=== PATIENT | female | born 1990 | race Caucasian/White ===

== ENCOUNTER 2021-06-21 06:58 | Emergency (ER) | payer OTHER, SELFPAY ==
--- NOTE | ~2021-06-21 | CT_ITS ---
EXAMINATION: CT ABDOMEN AND PELVIS WITH CONTRAST CLINICAL INFORMATION: Trauma. Left-sided pain. Rule out intra-abdominal hemorrhage. COMPARISON: None TECHNIQUE: Multidetector volumetric images were obtained from the superior aspect of the liver through the pubic symphysis following administration 85 mL of Omnipaque 350 intravenous contrast. Sagittal and coronal reformatted images were obtained on the technologist's workstation. Oral contrast: Yes This CT examination was performed using dose optimization techniques as appropriate, variously including the following: *Automated exposure control *Adjustment of mA and/or kV according to patient size (this includes techniques or standardized protocols for targeted exams where dose is matched to indication/reason for exam; i.e. extremities or head) *Use of iterative reconstruction technique DLP: 546 mGy-cm FINDINGS: LUNG BASES: The visualized lung bases are unremarkable. LIVER, GALLBLADDER, AND BILIARY TREE: The liver is normal in size, shape, and attenuation. No focal hepatic lesion or biliary ductal dilatation is present. The gallbladder is unremarkable with no evidence of radiopaque gallstones, gallbladder wall thickening, or obvious pericholecystic inflammatory changes. PANCREAS: Unremarkable. SPLEEN: There is a 1 cm low-attenuation lesion in the inferior spleen probably representing a cyst. ADRENAL GLANDS: Unremarkable. KIDNEYS AND URETERS: The kidneys are normal in size, shape, and attenuation. No hydronephrosis, hydroureter, or calculi seen. No perinephric stranding. BLADDER: Unremarkable. GASTROINTESTINAL TRACT: The small and large bowel are unremarkable. The appendix is is not seen. ABDOMINAL WALL: There is a small umbilical hernia containing fat.. LYMPH NODES: Normal. VASCULAR: Unremarkable. PELVIC VISCERA: Unremarkable. OSSEOUS STRUCTURES: Unremarkable. CT/CT abdomen pelvis w con IMPRESSION: No acute findings. Probable small splenic cyst. Fleischner guidelines were followed.
[2021-06-21 07:03] VITALS: BP 138/85; PULSE 73; RESP 18; TEMP 36.6; O2SAT 99; BMI 28.1
--- NOTE | 2021-06-21 07:08 | ED_ITS ---
HPI - Fall General Chief Complaint: Fall Stated Complaint: L Upper Quad Pain Up To Chest Time Seen by Provider: 06/21/21 07:08 Source: patient Mode of arrival: ambulatory Limitations: no limitations History of Present Illness HPI Narrative: 30-year-old female came in for evaluation after falling 2 steps of stairs yesterday. Patient fell at home yesterday, patient slipped on a wet floor fell down landed on her right side and her but patient sustained small area of black and blue on her right buttock, but complaining of severe pain of the left side of her abdomen, after the fall patient did not have pain, had a tough night to sleep because of the severe pain, she was tossing and turning in bed last night from pain, patient declined head injury or LOC, pain localized to the left side of her abdomen feel like gas pain, with no radiation, no alleviating factor, no relieving factor. Patient had a normal bowel movement with no blood, no blood or pain with urination. No fever or chills. Related Data Previous Rx's Medication Instructions Recorded cyclobenzaprine 10 mg tablet 10 mg PO TID PRN #14 tab 06/21/21 oxycodone 5 mg tablet 5 mg PO Q8H PRN #14 tab 06/21/21 Allergies Allergy/AdvReac Type Severity Reaction Status Date / Time No Known Allergies Allergy Verified 06/21/21 07:08 Review of Systems Review of Systems: All other systems are reviewed and are negative Constitutional: Reports as per HPI and Reports no additional constitutional complaints Eyes: Reports as per HPI and Reports no additional eye complaints Reports system reviewed and no additional complaints, except as documented Cardiovascular: Reports as per HPI and Reports no additional cardiovascular complaints Respiratory: Reports as per HPI and Reports no additional respiratory complaints Gastrointestinal: Reports as per HPI and Reports no additional gastrointestinal complaints Genitourinary: Reports no additional female genitourinary complaints Musculoskeletal: Reports no additional musculoskeletal complaints Skin/Breast: Reports system reviewed and no additional complaints, except as docu Psychiatric: Reports no additional psychiatric complaints Endocrine: Reports no additional endocrine complaints Hematologic/Lymphatic: Reports no additional hematologic/lymphatic complaints Allergic/Immunologic: Reports no additional allergic/immunologic complaints Reports system reviewed and no additional complaints, except as documented and Reports Abnormal speech present [facility] Past Medical History Medical History GERD (gastroesophageal reflux disease) Psoriasis Social History Social History Alcohol intake: never Smoked in Last 30 Days: No Use of substances other than those prescribed or required for medical reasons: No Advance Directives: No Advance Directives Information Provided: No Physical Exam Vital Signs: Vital Signs: Last Vital Signs Temp 97.9 F 06/21/21 07:03 Pulse 73 06/21/21 07:03 Resp 16 06/21/21 07:31 BP 138/85 06/21/21 07:03 Pulse Ox 99 06/21/21 07:03 BMI result Body Mass Index 28.1 Vital signs have been reviewed as appeared to be correct. Blood pressure normal. Heart rate normal. Respiration rate normal. Temperature normal. Oxygen saturation normal. Appearance: Alert. Oriented X3. No acute distress. Head: Normal external exam. Normocephalic. Atraumatic. No Godinez signs noted. No raccoon eyes noted Eyes: PERRLA. EOMI. Conjunctiva and sclera normal. Eyelids normal. ENT: TM's Normal. Pharynx normal. Uvula midline. Moist mucous membranes. No trismus noted. No drooling noted. No muffled voice noted. Neck: Normal inspection. Neck supple. FROM. No adenopathy. Thyroid Normal. No meningeal signs. No neck mass noted. CVS: Normal heart rate and rhythm. Heart sound normal. No murmurs noted. Pulses normal throughout. Respiratory: No respiratory distress. Painless inspiration. Breath sounds normal. No wheezes/rales/rhonchi noted. Chest nontender. No accessory muscle usage noted or decreased air movement noted. Abdomen: Soft, left abdominal tenderness, no rebound tenderness, no guarding. Bowel sounds normal in all 4 quadrants. No distention noted. No organomegaly noted. No visible injury noted. Back: No CVA tenderness. Full range of motion noted. Skin: Skin warm and dry. Normal skin color. Normal skin turgor. No rashes/lesions/lacerations noted. Extremities: Right but the 2 x 3 small ecchymosis with no tenderness. Neuro: Oriented X 3. Cranial nerve exam: II-XII are grossly intact No motor deficit. No sensory deficit. Reflexes normal. Course Course Course Narrative: Assessment and plan. 30-year-old female came in for evaluation after she fell yesterday at home, patient came to work today was sent for evaluation of back pain and abdominal pain. Patient has a chronic peptic ulcer disease that she will follow with GI in the next few weeks, but physical exam is not indicating it is PUD related issues, labs were all unremarkable, CT of the abdomen and pelvis show no head trauma abdominal injuries. Will discharge the patient with oxycodone and muscle relaxant. MDM - Fall Lab Data Attestation: I reviewed the patient's lab results. Result diagrams: 06/21/21 07:26 06/21/21 07:26 Labs: Lab Results 06/21/21 06/21/21 06/21/21 Range/Units 07:26 07:26 07:34 WBC 7.0 (4.8-10.8) X10*3/uL RBC 4.09 L (4.20-5.50) X10*6/uL Hgb 12.3 (12.0-16.0) g/dl Hct 37.0 (37.0-47.0) % MCV 90.5 (80.0-98.0) fL MCH 30.1 (27.0-33.0) pg MCHC 33.2 (31.0-35.0) g/dl RDW 11.8 (11.0-16.0) % Plt Count 225 (160-400) X10*3/uL MPV 9.6 (9.4-12.3) fL Immature Gran % (Auto) 0.3 (0.0-0.4) % Neut % (Auto) 53.1 (45-73) % Lymph % (Auto) 32.4 (20-40) % [place] % (Auto) 5.7 (2-11) % Eos % (Auto) 8.2 H (0-4) % Baso % (Auto) 0.3 (0-2) % Lymph # (Auto) 2.3 (1.2-4.9) X10*3/uL [place] # (Auto) 0.4 (0.1-1.2) X10*3/uL Eos # (Auto) 0.6 H (0.0-0.4) X10*3/uL Baso # (Auto) 0.0 (0.0-0.2) X10*3/uL Abs Immat Gran (auto) 0.02 (0.00-0.03) X10*3/uL Absolute Neuts (auto) 3.7 (2.0-8.3) x10*3/uL Absolute Nucleated RBC 0.000 (0.0-0.012) X10*3/uL Nucleated RBC % (auto) 0.0 (0.0-0.2) /100WBC Sodium 137 (135-145) mmol/L Potassium 4.1 (3.3-5.1) mmol/L Chloride 109 H (96-108) mmol/L Carbon Dioxide 22 (22-29) mmol/L Anion Gap 10 L (12-20) BUN 13 (9-16) mg/dL Creatinine 0.79 (0.5-1.4) mg/dL Estim Creat Clear Calc 103.8 Estimated GFR > 60 Random Glucose 100 (60-115) mg/dL Calcium 8.9 (8.4-10.2) mg/dL Total Bilirubin 0.3 (0.0-1.0) mg/dL Direct Bilirubin < 0.2 (0.0-0.5) mg/dL AST 17 (5-31) U/L ALT 11 (0-31) U/L Alkaline Phosphatase 63 (39-117) U/L Total Protein 7.0 (6.5-8.0) g/dL Albumin 4.1 (3.5-5.0) g/dL Lipase 29 (8-78) U/L Urine Color YELLOW Urine Appearance CLEAR Urine pH 5.5 (5.0-8.0) Ur Specific [place] >= 1.030 H (1.005-1.025) Urine Protein NEG (NEG-TRACE) MG/DL Urine Glucose (UA) NEG (NEG) MG/DL Urine Ketones NEG (NEG) MG/DL Urine Blood NEG (NEG) Urine Nitrite NEG (NEG) Ur Leukocyte Esterase TRACE H (NEG) Urine RBC 0 (0) /HPF Urine WBC 1-4 (0-4) /HPF Ur Squamous Epith Cells 2+ /LPF Urine Bacteria TRACE /LPF Urine Test (NEGATIVE) COVID-19 (ANDREA) (Negative) COVID-19 Clin Com 06/21/21 06/21/21 Range/Units 07:34 08:21 WBC (4.8-10.8) X10*3/uL RBC (4.20-5.50) X10*6/uL Hgb (12.0-16.0) g/dl Hct (37.0-47.0) % MCV (80.0-98.0) fL MCH (27.0-33.0) pg MCHC (31.0-35.0) g/dl RDW (11.0-16.0) % Plt Count (160-400) X10*3/uL MPV (9.4-12.3) fL Immature Gran % (Auto) (0.0-0.4) % Neut % (Auto) (45-73) % Lymph % (Auto) (20-40) % [place] % (Auto) (2-11) % Eos % (Auto) (0-4) % Baso % (Auto) (0-2) % Lymph # (Auto) (1.2-4.9) X10*3/uL [place] # (Auto) (0.1-1.2) X10*3/uL Eos # (Auto) (0.0-0.4) X10*3/uL Baso # (Auto) (0.0-0.2) X10*3/uL Abs Immat Gran (auto) (0.00-0.03) X10*3/uL Absolute Neuts (auto) (2.0-8.3) x10*3/uL Absolute Nucleated RBC (0.0-0.012) X10*3/uL Nucleated RBC % (auto) (0.0-0.2) /100WBC Sodium (135-145) mmol/L Potassium (3.3-5.1) mmol/L Chloride (96-108) mmol/L Carbon Dioxide (22-29) mmol/L Anion Gap (12-20) BUN (9-16) mg/dL Creatinine (0.5-1.4) mg/dL Estim Creat Clear Calc Estimated GFR Random Glucose (60-115) mg/dL Calcium (8.4-10.2) mg/dL Total Bilirubin (0.0-1.0) mg/dL Direct Bilirubin (0.0-0.5) mg/dL AST (5-31) U/L ALT (0-31) U/L Alkaline Phosphatase (39-117) U/L Total Protein (6.5-8.0) g/dL Albumin (3.5-5.0) g/dL Lipase (8-78) U/L Urine Color Urine Appearance Urine pH (5.0-8.0) Ur Specific [place] (1.005-1.025) Urine Protein (NEG-TRACE) MG/DL Urine Glucose (UA) (NEG) MG/DL Urine Ketones (NEG) MG/DL Urine Blood (NEG) Urine Nitrite (NEG) Ur Leukocyte Esterase (NEG) Urine RBC (0) /HPF Urine WBC (0-4) /HPF Ur Squamous Epith Cells /LPF Urine Bacteria /LPF Urine Test NEGATIVE (NEGATIVE) COVID-19 (ANDREA) Negative (Negative) COVID-19 Clin Com See Note Imaging Data CT scan - abdomen: Attestation: I personally reviewed and interpreted this imaging study as follows: Radiologist's impression: No acute findings. Probable small splenic cyst. Discharge Plan Discharge Clinical Impression: Fall, Abdominal wall contusion Patient Disposition: Home, Self-Care Instructions: Contusion in Adults (ED) Prescriptions: New cyclobenzaprine 10 mg tablet 10 mg PO TID PRN (Reason: muscle spasm) Qty: 14 RF: 0 oxycodone 5 mg tablet 5 mg PO Q8H PRN (Reason: pain) Qty: 14 RF: 0 Referrals: Soo Hays MD [Primary Care Provider] - 2 days Stand Alone Forms: Work/School Release
[2021-06-21 07:29] LABS: MANUAL DIFF FLAG NO
[2021-06-21 07:31] VITALS: RESP 16
[2021-06-21] MEDS: 0.9 % Sodium Chloride 1,000 ML 999 ML IV (07:31)
[2021-06-21] MEDS: Morphine Sulfate 2 MG/ML CARTRIDGE 1 MG IVPUSH (07:31)
[2021-06-21 07:34] LABS: Basophils Percent Auto 0.3 % (0-2); Eosinophils Absolute Auto 0.6 X10*3/uL (0.0-0.4); Eosinophils Percent Auto 8.2 % (0-4); Hemoglobin 12.3 g/dl (12.0-16.0); Imm Gran Abs Auto 0.02 X10*3/uL (0.00-0.03); Imm Gran Pct Auto 0.3 % (0.0-0.4); Lymphocytes Absolute Auto 2.3 X10*3/uL (1.2-4.9); Lymphocytes Percent Auto 32.4 % (20-40); Mean Corpuscular HGB Conc 33.2 g/dl (31.0-35.0); Mean Corpuscular Hemoglobin 30.1 pg (27.0-33.0); Mean Corpuscular Volume 90.5 fL (80.0-98.0); Mean Platelet Volume 9.6 fL (9.4-12.3); Monocytes Absolute Auto 0.4 X10*3/uL (0.1-1.2); Monocytes Percent Auto 5.7 % (2-11); Neutrophils Absolute Auto 3.7 x10*3/uL (2.0-8.3); Neutrophils Percent Auto 53.1 % (45-73); Platelet Count 225 X10*3/uL (160-400); Red Blood Count 4.09 X10*6/uL (4.20-5.50); Red Cell Distribution Width 11.8 % (11.0-16.0)
[2021-06-21 07:40] LABS: Appearance Urine CLEAR; Color Urine YELLOW; Glucose Urine UA NEG (NEG); Leukocyte Esterase Urine TRACE (NEG); Nitrite Urine NEG (NEG); PH 5.5 (5.0-8.0); Specific Gravity - Urine >= 1.030 (1.005-1.025); UACC Culture Trigger YES; Urine Blood NEG (NEG); Urine Ketones NEG (NEG); Urine Protein NEG (NEG-TRACE)
[2021-06-21 07:42] LABS: UPreg QC Valid YES; Urine Pregnancy NEGATIVE (NEGATIVE)
[2021-06-21 07:48] LABS: Bacteria Urine TRACE /LPF; RBC Urine 0 /HPF (0); Squamous Epithelial Cell Urine 2+ /LPF
[2021-06-21 07:52] LABS: Alanine Aminotransferase 11 U/L (0-31); Albumin Level 4.1 g/dL (3.5-5.0); Alkaline Phosphatase 63 U/L (39-117); Anion Gap 10 (12-20); Aspartate Amino Transferase 17 U/L (5-31); Bilirubin Direct < 0.2 mg/dL (0.0-0.5); Bilirubin Total 0.3 mg/dL (0.0-1.0); Blood Urea Nitrogen 13 mg/dL (9-16); Calcium 8.9 mg/dL (8.4-10.2); Carbon Dioxide 22 mmol/L (22-29); Chloride 109 mmol/L (96-108); Creatinine Clr Calc Pharmacy 103.8; Estimated Glomerular Filt Rate > 60; Glucose Random 100 mg/dL (60-115); Lipase 29 U/L (8-78); Potassium 4.1 mmol/L (3.3-5.1); Sodium 137 mmol/L (135-145)
[2021-06-21] MEDS: ondansetron HCL 4 MG/2 ML VIAL IVPUSH (08:18)
[2021-06-21 08:42] LABS: COVID-19 Test Negative (Negative)
== END 2021-06-21 09:37 | disposition home or self-care (01) ==
PROVIDERS: Emergency Provider Emergency Medicine; PCP Internal Medicine
DX: S30.1XXA Contusion of abdominal wall, initial encounter (principal); W10.9XXA Fall (on) (from) unspecified stairs and steps, initial encounter; R10.12 Left upper quadrant pain; Z20.822 Contact with and (suspected) exposure to COVID-19; Y93.89 Activity, other specified; Y92.9 Unspecified place or not applicable; Y99.9 Unspecified external cause status
CPT/HCPCS: 36415; 74177; 80048; 80076; 81001; 81025; 83690; 85025; 87086; 87635; 96361; 96374; 96375; 99284; J2270; J2405

== ENCOUNTER 2021-08-17 08:54 | Day surgery (SDC) | payer OTHER, SELFPAY ==
[2021-08-10 19:47] VITALS: BMI 29.2
--- NOTE | 2021-08-16 10:24 | P.CONAN_ITS ---
Documented by User: Senait Ricks NP 08/16/21 10:25 HPI - Anesthesia Eval Consult details Narrative: 31yo F for Upper Endoscopy [facility] Past Medical History Medical History Exercise-induced asthma GERD (gastroesophageal reflux disease) Psoriasis Social History Social History Alcohol intake: never Patient Tobacco Use Status: Never used Tobacco Use of substances other than those prescribed or required for medical reasons: No Are you DNR?: No Advance Directives: No Advance Directives Information Provided: Yes Recently lost weight without trying: No Nutrition Risks: No Nutritional Risk Patient : No : No Meds Allergies Allergy/AdvReac Type Severity Reaction Status Date / Time No Known Allergies Allergy Verified 06/21/21 07:08 Home Medications Medication Instructions Recorded Confirmed Last Taken Type albuterol 90 mcg/actuation aerosol 2 mcg INHALATION DIRECTED PRN 08/10/21 08/10/21 Unknown History inhaler loratadine 10 mg tablet (Claritin) 10 mg PO DAILY 08/10/21 08/10/21 Unknown History norgestrel 0.3 mg-ethinyl 1 tab PO DAILY 08/10/21 08/10/21 Unknown History estradiol 30 mcg tablet (Elinest) pantoprazole 20 mg tablet,delayed 20 mg PO DAILY 08/10/21 08/10/21 Unknown History release paroxetine HCl 20 mg tablet 40 mg PO DAILY 08/10/21 08/10/21 Unknown History Exam Exam Date and Time: August 16, 2021 1024 Height,Weight and Vital Signs: Height 5 ft 4 in Weight 77.111 kg Pertinent Lab Results Pertinent Lab Results: Laboratory Tests 06/21/21 06/21/21 07:26 07:26 WBC 7.0 Hgb 12.3 Hct 37.0 Plt Count 225 Sodium 137 Potassium 4.1 Chloride 109 H Carbon Dioxide 22 BUN 13 Creatinine 0.79 Assessment and Plan Assessment Anesthesia Assessment: Chart Reviewed Documented by User: Falguni Carpenter MD 08/17/21 10:05 [facility] Past Medical History Medical History Exercise-induced asthma GERD (gastroesophageal reflux disease) Psoriasis Surgical History History of Problems with Anesthesia: No Social History Social History Alcohol intake: never Patient Tobacco Use Status: Never used Tobacco Use of substances other than those prescribed or required for medical reasons: No Are you DNR?: No Advance Directives: No Advance Directives Information Provided: Yes Recently lost weight without trying: No Nutrition Risks: No Nutritional Risk Patient : No : No Meds Allergies Allergy/AdvReac Type Severity Reaction Status Date / Time No Known Allergies Allergy Verified 06/21/21 07:08 Home Medications Medication Instructions Recorded Confirmed Last Taken Type albuterol 90 mcg/actuation aerosol 2 mcg INHALATION DIRECTED PRN 08/10/21 08/10/21 Unknown History inhaler loratadine 10 mg tablet (Claritin) 10 mg PO DAILY 08/10/21 08/10/21 Unknown History norgestrel 0.3 mg-ethinyl 1 tab PO DAILY 08/10/21 08/10/21 Unknown History estradiol 30 mcg tablet (Elinest) pantoprazole 20 mg tablet,delayed 20 mg PO DAILY 08/10/21 08/10/21 Unknown History release paroxetine HCl 20 mg tablet 40 mg PO DAILY 08/10/21 08/10/21 Unknown History Exam Airway Mallampati Class: II TM Dist: >3cm Neck ROM: Full Heart: RRR Lungs: CTA Assessment and Plan Assessment Anesthesia Assessment: Anesthesia Plan Discussed Final Anesthetic Review History of Problems with Anesthesia: No NPO: Yes ASA Class: II Final Preanesthetic Review: Meds/Allgs Chart Reviewed, Consent Obtained/Reviewed and Anes Risks/Benef Reviewed Patient Risk: Low Procedure Risk: Intermediate Anesthetic Plan Anesthetic Plan: MAC: Disposition: Standard PACU
[2021-08-17 08:57] VITALS: BP 147/76; PULSE 98; RESP 17; TEMP 36.3; O2SAT 98
[2021-08-17 09:14] LABS: UPreg QC Valid YES; Urine Pregnancy NEGATIVE (NEGATIVE)
[2021-08-17] MEDS: Lactated Ringers 1,000 ML 100 ML IVCONT (09:17)
--- NOTE | 2021-08-17 10:04 | MHC.SHP ---
Pre-Procedural Eval Section A Date of Service: 08/17/21 The patient is an INPATIENT: No Changes since office visit: No Cold of Flu in the past 2 weeks, No New Medical Problems, No Changes in Medication and No Patient answered all questions The History & Physical has been completed within 30 days and I have reviewed it.: Yes Section B Chief Complaint: reflux disease Allergies: Allergies Allergy/AdvReac Type Severity Reaction Status Date / Time No Known Allergies Allergy Verified 06/21/21 07:08 Plan I have reviewed the history and physical and performed a pertinent physical examination on my patient. No changes have occurred unless specified.
[2021-08-17 10:24] VITALS: BP 112/59; PULSE 76; RESP 18; TEMP 36.5; O2SAT 99
--- NOTE | 2021-08-17 10:28 | P.BOP_ITS ---
Brief Operative Note Date of Service: 08/17/21 Pre-op diagnosis: gerd Post-op diagnosis: same Procedure: egd Surgeon: Domingo Lorenz Anesthesia: MAC Was an Chronic Disease Manager used for this Procedure?: No Estimated blood loss (mL): 2 Pathology: other (bx's antrum,egj, gastric polyp) Condition: stable Disposition: PACU
[2021-08-17 10:39] VITALS: BP 113/63; PULSE 62; RESP 16; O2SAT 98
[2021-08-17 10:54] VITALS: BP 119/79; PULSE 73; RESP 18; TEMP 37.3; O2SAT 100
[2021-08-17 10:56] VITALS: TEMP 37.3
--- NOTE | 2021-08-17 20:42 | OP_ITS ---
SURGEON: Domingo Lorenz MD INDICATIONS: Gastroesophageal reflux disease. PREOPERATIVE DIAGNOSIS: POSTOPERATIVE DIAGNOSIS: PROCEDURE PERFORMED: ESTIMATED BLOOD LOSS: COMPLICATIONS: ANESTHESIA: ASSISTANTS: SPECIMENS: PROCEDURE: Upper endoscopy with biopsy. MEDICATIONS: Monitored anesthesia care. DESCRIPTION OF PROCEDURE: History and physical performed. The risks and benefits of the procedure were explained to the patient. Informed consent was obtained. The patient was placed in the left lateral decubitus position. The Olympus video gastroscope was introduced into the esophagus, stomach, and duodenum. Examination was performed. The scope was removed. She tolerated the procedure well and was transferred top the recovery area in stable condition. FINDINGS: Esophagus: The esophagus was normal. There was a slightly irregular EG junction, which was biopsied. There was no esophagitis. Stomach: Stomach showed a less than 5 mm benign-appearing polyp in the body on the greater curvature. This was biopsied. This appeared consistent with a fundic gland polyp. Antral biopsies were obtained to rule out H pylori. Duodenum: The bulb and second portion were normal. IMPRESSION: 1. Normal upper endoscopy. 2. Gastric polyp. RECOMMENDATION: Follow up the biopsy results. MD PATY Kumari/PETEY / [id number]
== END 2021-08-17 11:24 | disposition home or self-care (01) ==
PROVIDERS: Nurse Practitioner; PCP Internal Medicine; Visit Provider Internal Medicine Gastroenterology
PROC: 0DJ08ZZ Inspection of Upper Intestinal Tract, Via Natural or Artificial Opening Endoscopic (ICD-10-PCS; CPT 43235; principal; 2021-08-17 10:10)
DX: K21.9 Gastro-esophageal reflux disease without esophagitis (principal); K31.7 Polyp of stomach and duodenum; Z83.71 Family history of colonic polyps; Z79.899 Other long term (current) drug therapy
CPT/HCPCS: 43239; 81025; 88305; 88342

== ENCOUNTER 2021-09-14 10:33 | Outpatient (REF) | payer OTHER, SELFPAY ==
[2021-09-14 11:50] LABS: MANUAL DIFF FLAG NO
[2021-09-14 12:23] LABS: Basophils Percent Auto 0.4 % (0-2); Eosinophils Absolute Auto 0.4 X10*3/uL (0.0-0.4); Eosinophils Percent Auto 4.5 % (0-4); Hematocrit 37.1 % (37.0-47.0); Hemoglobin 12.1 g/dl (12.0-16.0); Imm Gran Abs Auto 0.03 X10*3/uL (0.00-0.03); Imm Gran Pct Auto 0.4 % (0.0-0.4); Lymphocytes Absolute Auto 2.3 X10*3/uL (1.2-4.9); Lymphocytes Percent Auto 27.3 % (20-40); Mean Corpuscular HGB Conc 32.6 g/dl (31.0-35.0); Mean Corpuscular Volume 91.8 fL (80.0-98.0); Mean Platelet Volume 9.9 fL (9.4-12.3); Monocytes Absolute Auto 0.5 X10*3/uL (0.1-1.2); Monocytes Percent Auto 5.9 % (2-11); Neutrophils Absolute Auto 5.2 x10*3/uL (2.0-8.3); Neutrophils Percent Auto 61.5 % (45-73); Platelet Count 257 X10*3/uL (160-400); Red Blood Count 4.04 X10*6/uL (4.20-5.50); Red Cell Distribution Width 12.1 % (11.0-16.0); White Blood Count 8.5 X10*3/uL (4.8-10.8)
[2021-09-14 13:06] LABS: Erythrocyte Sedimentation Rate 8 MM/HR (0-20)
[2021-09-14 13:13] LABS: Creatinine Urine 34.34 mg/dL; Microalbumin Urine < 5.0 mg/L
[2021-09-14 13:15] LABS: C Reactive Protein 0.54 mg/dL (< or = 0.50)
[2021-09-18 11:20] LABS: Anti Nuclear Antibody Pattern Nuclear, Homogeneous; Anti Nuclear Antibody Screen POSITIVE (NEGATIVE)
== END 2021-09-14 10:34 | disposition home or self-care (01) ==
LOC: HO.LAB 10:33
PROVIDERS: PCP Internal Medicine; Visit Provider Internal Medicine Rheumatology
DX: L50.9 Urticaria, unspecified (principal); L40.9 Psoriasis, unspecified
CPT/HCPCS: 36415; 82043; 85025; 85652; 86038; 86039; 86140

== ENCOUNTER 2021-09-22 06:14 | Outpatient (REF) | payer OTHER, SELFPAY ==
[2021-09-28 15:01] LABS: Anti DNA DS Antibody 1 IU/mL; Myeloperoxidase Antibody <1.0 AI; Proteinase 3 PR3 Antibodies <1.0 AI; SM/Ribonucleoprotein Ab <1.0 NEG AI (<1.0 NEG); Smith Protein <1.0 NEG AI (<1.0 NEG)
== END 2021-09-22 06:15 | disposition home or self-care (01) ==
LOC: HO.LAB 06:14
PROVIDERS: PCP Internal Medicine; Visit Provider Internal Medicine Rheumatology
DX: L50.9 Urticaria, unspecified (principal); R76.8 Other specified abnormal immunological findings in serum
CPT/HCPCS: 36415; 86021; 86225; 86235

== ENCOUNTER 2023-11-18 10:05 | Emergency (ER) | payer OTHER, SELFPAY ==
--- NOTE | ~2023-11-18 | XR_ITS ---
EXAMINATION: XR HAND/WRIST, RIGHT CLINICAL INFORMATION: Pain of right hand COMPARISON: None TECHNIQUE: PA, lateral, and oblique views of the right hand and wrist. FINDINGS: Bones have normal alignment throughout the hand or wrist. The joint spaces are normal. No acute fracture or subluxation. No radiopaque foreign body or dystrophic calcification. XR/XR hand wrist RT IMPRESSION: * No acute osseous injury in the hand or wrist. * No evidence of a degenerative or inflammatory arthropathy.
[2023-11-18 10:06] VITALS: BP 151/92; PULSE 72; RESP 19; TEMP 36.6; O2SAT 99; BMI 30.9
--- NOTE | 2023-11-18 10:11 | PC.NURSE ---
patient a&ox3, states her pain is currently manageable 2-08/26, states she took advil at home this morning prior to coming in, no known injury.
--- NOTE | 2023-11-18 12:02 | ED_ITS ---
HPI - Extremity Problem General Chief complaint: Extremity Injury, Upper Stated complaint: RT hand pain, swelling Time Seen by Provider: 11/18/23 10:46 History of Present Illness HPI Narrative: Patient complains of right hand and right index finger pain and mild swelling, with no injury, but she has been working a lot but does not recall any acute injuries, she denies any other joint pain or swelling denies numbness weakness or tingling no fever Related Data Home Medications ?Medication ?Instructions ?Recorded ?Confirmed albuterol 90 mcg/actuation aerosol 2 mcg inhalation DIRECTED PRN 08/10/21 09/14/21 inhaler Shortness Of Breath Or Wheezing norgestrel 0.3 mg-ethinyl 1 tab PO DAILY 08/10/21 09/14/21 estradiol 30 mcg tablet (Elinest) pantoprazole 20 mg tablet,delayed 20 mg PO DAILY 08/10/21 09/14/21 release paroxetine HCl 20 mg tablet 40 mg PO DAILY 08/10/21 09/14/21 cholecalciferol (vitamin D3) 50 50 mcg PO DAILY 09/14/21 09/14/21 mcg (2,000 unit) capsule ferrous sulfate 325 mg (65 mg 325 mg PO DAILY 09/14/21 09/14/21 iron) tablet ibuprofen 200 mg tablet (Advil) 400 mg PO Q8H PRN 09/14/21 09/14/21 Previous Rx's ?Medication ?Instructions ?Recorded ibuprofen 800 mg tablet 800 mg PO Q8H PRN pain #30 tabs 11/18/23 Allergies Allergy/AdvReac Type Severity Reaction Status Date / Time No Known Allergies Allergy Verified 11/18/23 10:08 [facility] Past Medical History Source: nursing notes reviewed Medical History (Updated 11/18/23 @ 12:12 by ROC Christina) SHOAIB positive Depression Asthma Urticaria Exercise-induced asthma Psoriasis GERD (gastroesophageal reflux disease) Social History Social History (Updated 09/14/21 @ 10:46 by Tahir Khalil LPN) Household Members: Significant Other Housing: House Alcohol intake: current Alcohol type: beer Patient Tobacco Use Status: Never used Tobacco e-Cigarette/Vaping Use: Never Used Advance Directives: No Advance Directives Information Provided: No service: No Current occupational status: employed Current occupation: RN [employer] Physical Exam Vital Signs: Vital Signs: Last Vital Signs Temp 98 F 11/18/23 12:39 Pulse 72 11/18/23 12:39 Resp 19 11/18/23 12:39 BP 151/92 H 11/18/23 12:39 Pulse Ox 99 11/18/23 12:39 O2 Del Method Room Air 11/18/23 12:39 BMI result Body Mass Index 30.9 General appearance is no acute distress Neck supple nontender The back full range of motion Skin no rashes The right hand and wrist exam the right index finger is mildly swollen not red or warm and is painful with full flexion, the right wrist dorsal is mildly swollen but not red or warm it has full range of motion but is uncomfortable with flexion and especially extension, neurovascular intact distal with good p ulse sensation and normal motor function Course Course Course Narrative: Right wrist and hand x-ray was negative, no sign of any cellulitis or infection in the hand, and patient is given a wrist splint for comfort She is told this is likely a tendinitis but I am not certain and she will follow with primary doctor for evaluation of possible rheumatic disease and the hand doctor for evaluation for possible tendinitis Medications Administered Discontinued Medications Generic Name Dose Route Start Last Admin Trade Name Freq PRN Reason Stop Dose Admin Ibuprofen 800 mg 11/18/23 12:14 11/18/23 12:26 Ibuprofen 800 Mg Tablet PO 11/18/23 12:15 Not Given ONCE ONE Discharge Plan Discharge Clinical Impression: Tendinitis Patient Disposition: Home, Self-Care Additional Instructions: The inflammation in your index finger and the back of her wrist is likely tendinitis but I am not sure we are trying anti-inflammatory You can use the wrist splint at night and in the day if it is helping to relieve pain Follow with primary doctor to be checked for possible inflammatory conditions and with hand doctor to be evaluated for tendinitis Return any time if worse Prescriptions: New ibuprofen 800 mg tablet 800 mg PO Q8H PRN (Reason: pain) Qty: 30 0RF No Action Elinest 0.3-30 mg-mcg tablet 1 tab PO DAILY pantoprazole 20 mg tablet,delayed release (DR/EC) 20 mg PO DAILY paroxetine HCl 20 mg tablet 40 mg PO DAILY albuterol 90 mcg/actuation Aerosol 2 mcg inhalation DIRECTED PRN (Reason: Shortness Of Breath Or Wheezing) ferrous sulfate 325 mg (65 mg iron) tablet 325 mg PO DAILY cholecalciferol (vitamin D3) 50 mcg (2,000 unit) capsule 50 mcg PO DAILY ibuprofen [Advil] 200 mg tablet 400 mg PO Q8H PRN Referrals: Ashlee Marquez MD [Physician] - (Right wrist and finger tendinitis) Stand Alone Forms: Work/School Release Interventions: ED Discharge Assessment Last Done: 11/18/23 12:39 Discharge Date/Time: 11/18/23 12:40 Print Language: Icelandic
--- NOTE | 2023-11-18 12:38 | PC.NURSE ---
pt refusing ibuprofen as she took it at home prior to arrival, rt splint applied per request of provider. pt to discharge home with scripts, pt has + csm/pulses to RUE
[2023-11-18 12:39] VITALS: BP 151/92; PULSE 72; RESP 19; TEMP 36.6; O2SAT 99
== END 2023-11-18 12:40 | disposition home or self-care (01) ==
PROVIDERS: Emergency Provider Emergency Medicine; PCP Internal Medicine
DX: M79.641 Pain in right hand (principal); M77.8 Other enthesopathies, not elsewhere classified
CPT/HCPCS: 73110; 73130; 99282; 99283

== ENCOUNTER 2024-05-21 08:49 | Outpatient (REF) | payer OTHER, SELFPAY ==
[2024-05-21 10:42] LABS: MANUAL DIFF FLAG NO
[2024-05-21 10:58] LABS: Basophils Percent Auto 0.3 % (0-2); Eosinophils Absolute Auto 0.3 X10*3/uL (0.0-0.4); Eosinophils Percent Auto 4.5 % (0-4); Hematocrit 39.7 % (37.0-47.0); Hemoglobin 13.2 g/dl (12.0-16.0); Imm Gran Abs Auto 0.02 X10*3/uL (0.00-0.03); Imm Gran Pct Auto 0.3 % (0.0-0.4); Lymphocytes Absolute Auto 2.2 X10*3/uL (1.2-4.9); Lymphocytes Percent Auto 29.5 % (20-40); Mean Corpuscular HGB Conc 33.2 g/dl (31.0-35.0); Mean Corpuscular Hemoglobin 29.2 pg (27.0-33.0); Mean Corpuscular Volume 87.8 fL (80.0-98.0); Mean Platelet Volume 9.6 fL (9.4-12.3); Monocytes Absolute Auto 0.4 X10*3/uL (0.1-1.2); Monocytes Percent Auto 5.1 % (2-11); Neutrophils Absolute Auto 4.4 x10*3/uL (2.0-8.3); Neutrophils Percent Auto 60.3 % (45-73); Platelet Count 268 X10*3/uL (160-400); Red Blood Count 4.52 X10*6/uL (4.20-5.50); Red Cell Distribution Width 11.8 % (11.0-16.0); White Blood Count 7.3 X10*3/uL (4.8-10.8)
[2024-05-21 11:27] LABS: Appearance Urine Clear; Color Urine Yellow; Glucose Urine UA Negative (Negative); Leukocyte Esterase Urine Trace (Negative); Nitrite Urine Negative (Negative); PH 6.5 (5.0-9.0); Specific Gravity - Urine 1.015 (1.005-1.025); UMIC TRIGGER UA YES; Urine Blood Negative (Negative); Urine Ketones Negative (Negative); Urine Protein Negative (Neg-Trace)
[2024-05-21 11:30] LABS: Bacteria Urine 1+ (None Seen); Hyaline Casts Urine 0-2 /LPF (0-2); RBC Urine 0-2 /HPF (0-2); WBC Urine 0-5 /HPF (0-5)
[2024-05-21 11:34] LABS: Erythrocyte Sedimentation Rate 10 MM/HR (0-20)
[2024-05-21 11:38] LABS: HBc Num1 0.07 S/CO (0.00-0.79); HBsAGNum1 0.36 S/CO (0.00-0.99); Hepatitis A Antibody IgM 0.14 Index (0-0.79); Hepatitis B Core Antibody Nonreactive (Nonreactive); Hepatitis B Surface Antigen Negative (Negative); ~HepC Num1 0.23 S/CO (0.00-0.79); ~Hepatitis A Antibody IgM Nonreactive (Nonreactive); ~Hepatitis B Surface Antibody REACTIVE (Nonreactive); ~Hepatitis C Antibody Nonreactive (Nonreactive)
[2024-05-21 11:45] LABS: Alanine Aminotransferase 27 U/L (0-31); Albumin Level 4.7 g/dL (3.5-5.0); Alkaline Phosphatase 74 U/L (39-117); Anion Gap 12 (12-20); Aspartate Amino Transferase 26 U/L (5-31); Bilirubin Total 0.6 mg/dL (0.0-1.0); Blood Urea Nitrogen 12 mg/dL (9-16); C Reactive Protein 0.25 mg/dL (< or = 0.50); Calcium 9.7 mg/dL (8.4-10.2); Carbon Dioxide 24 mmol/L (22-29); Chloride 106 mmol/L (96-108); Estimated Glomerular Filt Rate > 60; Glucose Random 89 mg/dL (60-115); Potassium 3.8 mmol/L (3.3-5.1); Sodium 138 mmol/L (135-145); Total Protein 7.7 g/dL (6.5-8.0)
[2024-05-21 11:51] LABS: HCG Quantitative 62 mIU/mL; TSH reflex Free T4 1.83 uIU/mL (0.32-4.0)
[2024-05-21 12:21] LABS: Creatinine Urine 116.66 mg/dL; Total Protein Urine Random < 7 mg/dL (<12)
[2024-05-22 16:14] LABS: Complement C3 149 mg/dL (83-193)
[2024-05-22 17:43] LABS: Anti DNA DS Antibody 1 IU/mL; Antibody to SS-A Antigen <1.0 NEG AI (<1.0 NEG); Antibody to SS-B Antigen <1.0 NEG AI (<1.0 NEG); SM/Ribonucleoprotein Ab <1.0 NEG AI (<1.0 NEG); Smith Protein <1.0 NEG AI (<1.0 NEG)
[2024-05-22 18:18] LABS: Thyroglobulin Antibodies <1 IU/mL (< or = 1); Thyroid Peroxidase Antibodies 2 IU/mL (<9)
[2024-05-23 14:18] LABS: Cardiolipin IgG Ab <2.0 GPL-U/mL; Cardiolipin IgM Ab <2.0 MPL-U/mL
[2024-05-24 05:03] LABS: TS Negative Control Passed; TS Panel A 2; TS Panel B 1; TS Positive Control Passed; TSpotTB Negative (Negative)
[2024-05-24 05:39] LABS: PTT (LAC) Screen 36 sec (<=40)
[2024-05-27 20:37] LABS: Beta-2 Glycoprotein IgA <2.0 U/mL (<20.0); Beta-2 Glycoprotein IgG <2.0 U/mL (<20.0); Beta-2 Glycoprotein IgM <2.0 U/mL (<20.0)
[2024-05-28 15:33] LABS: DNAds, Crithidia Antibody Negative (Negative)
== END 2024-05-21 08:50 | disposition home or self-care (01) ==
LOC: HO.LAB 08:49
PROVIDERS: PCP Internal Medicine; Visit Provider Student in an Organized Health Care Education/Training Program
DX: M32.9 Systemic lupus erythematosus, unspecified (principal); D68.61 Antiphospholipid syndrome; E07.9 Disorder of thyroid, unspecified; Z34.90 Encounter for supervision of normal pregnancy, unspecified, unspecified trimester; M45.9 Ankylosing spondylitis of unspecified sites in spine; L40.50 Arthropathic psoriasis, unspecified; R76.8 Other specified abnormal immunological findings in serum
CPT/HCPCS: 36415; 80053; 81001; 82570; 84156; 84443; 84702; 85025; 85597; 85598; 85613; 85652; 85730; 86140; 86146; 86147; 86160; 86225; 86235; 86255; 86376; 86481; 86704; 86706; 86709; 86800; 86803; 86812; 87340

== ENCOUNTER 2024-05-21 08:49 | Outpatient (AMB) | payer OTHER, SELFPAY ==
--- NOTE | 2024-05-21 09:10 | A.OFFVIS_ITS ---
Vital Signs 3 05/21/24 09:13 Height 5 ft 4 in Weight 181 lb 3.52 oz BMI 31.1 BP 115/70 Blood Pressure Location Rt brachial Position Sitting Respiration 16 Pulse 79 Pulse Source Pulse Oximeter Pulse Oximetry (%) 98 Oxygen Delivery Method Room Air Intake Visit Reasons: +SHOAIB/CM Intake Note: Patient presents for +SHOAIB. I feel joint pain on both elbows, both wrist, fingers, both knees and toes and they get swollen intermitted. Feeling soft tissue swelling with any type of pressure. Joint pain and swelling started since December of this year. Soft tissue swelling started for about a year. I take Advil, try heat and ice and I wear wrist splints. It helps short term only. Allergies No Known Allergies Allergy (Verified 05/21/24 09:22) Medication List - Last Reconciled 05/21/24 by Giovani Robledo MD albuterol 90 mcg/actuation 2 mcg inhalation DIRECTED PRN cetirizine (Zyrtec) 10 mg PO DAILY PRN ibuprofen (Advil) 400 mg PO Q8H PRN HPI Comments Details: This is a 33-year-old female who presents for evaluation of a positive SHOAIB. Patient has had psoriasis for more than 10 years. It generally in falls her scalp, her ears, her legs and elbows. She has been treated with different topical creams with varying efficacy. She states that over the last year she has been having episodes of joint pain and swelling involving her hands, wrists, toes. These episodes happen about once a day and last about 1 day. They are generally quite debilitating. Do not respond much to ibuprofen. For a few years she would have episodes of soft tissue swelling such as in her shoulders and back if she carries a backpack. She had an episode of swelling of her forehead after she was wearing a hat. She is unaware of any family history of an autoimmune rheumatic disease. Denies any history of DVT/PE. 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 Reproductive History Menstrual Total pregnancies: 0 Review of Systems Musc Reports arthralgias, Reports joint swelling and Reports stiffness Skin/Breast Reports rash Physical Exam Vital Signs: Last Vital Signs Pulse 79 05/21/24 09:13 Resp 16 05/21/24 09:13 BP 115/70 05/21/24 09:13 Pulse Ox 98 05/21/24 09:13 Oxygen Delivery Method Room Air 05/21/24 09:13 BMI result Body Mass Index 31.1 Const General: cooperative, healthy appearing, comfortable and no acute distress Nutritional Appearance: obese Orientation/consciousness: patient oriented x3 Limitations: no limitations HEENT Head: Yes normocephalic and Yes atraumatic Mouth: moist mucous membranes Resp Effort & Inspection: normal respiratory effort and able to speak in complete sentences Auscultation: clear to auscultation bilaterally Skin Other: Psoriasis rashes on both elbows, behind both ears, inside both ears, large patch on her right leg, subtle patches on left leg and left knee Neuro General: patient oriented x3 Extrem Other: There is no active synovitis today Subtle DIP changes particularly in the left index Normal nailfold capillaroscopy Patient showed me pictures however of swollen index and toe Results Reviewed Results Reviewed: Labs in 2023 SHOAIB 1-12 80 homogeneous RF and anti CCP negative Assessment & Plan Assessment & Plan (1) Psoriatic arthritis: Code(s): L40.50 - Arthropathic psoriasis, unspecified Category: Medical Plan: This is a 33-year-old female with 10 year history of psoriasis who presents for evaluation of 1 year history of joint pain and swelling. Clinical picture consistent with new onset inflammatory arthritis, likely psoriatic arthritis however given her positive SHOAIB I will order comprehensive serology to screen for underlying autoimmune rheumatic disease. Patient also just found out she was based on a urine test. I will order the blood test. She will follow- up with Dr. Vivas soon Follow-up after blood work is completed (2) SHOAIB positive: Code(s): R76.8 - Other specified abnormal immunological findings in serum Category: Medical Plan: Check further sub serologies Plan I spent 35 minutes reviewing patient's chart, evaluating patient, ordering diagnostic workup, counseling patient and documenting in the chart Orders: Orders 2 C Reactive Protein Today M32.9 - Systemic lupus erythematosus, unspecified Erythrocyte Sedimentation Rate Today M32.9 - Systemic lupus erythematosus, unspecified Sjogren's Antibodies Today M32.9 - Systemic lupus erythematosus, unspecified Hepatitis A,B,C Profile Today M32.9 - Systemic lupus erythematosus, unspecified HLA B27 Today M45.9 - Ankylosing spondylitis of unspecified sites in spine Beta-2 Glycoprotein Antibody Today D68.61 - Antiphospholipid syndrome Cardiolipin Antibodies Today D68.61 - Antiphospholipid syndrome Anti Extractable Nuclear Ag Today M32.9 - Systemic lupus erythematosus, unspecified Anti DNA DS Antibody Today M32.9 - Systemic lupus erythematosus, unspecified Complement C3 Today M32.9 - Systemic lupus erythematosus, unspecified Complement C4 Today M32.9 - Systemic lupus erythematosus, unspecified DNA Double Stranded-Crithidia Today M32.9 - Systemic lupus erythematosus, unspecified Protein Creatinine Ratio, Ur Today M32.9 - Systemic lupus erythematosus, unspecified UA w Microscopic Today M32.9 - Systemic lupus erythematosus, unspecified Complete Blood Count Auto Diff Today M32.9 - Systemic lupus erythematosus, unspecified Comprehensive Met. Panel Today M32.9 - Systemic lupus erythematosus, unspecified T Spot TB Today M32.9 - Systemic lupus erythematosus, unspecified Lupus Anticoagulant Panel Today D68.61 - Antiphospholipid syndrome TSH reflex Free T4 Today E07.9 - Disorder of thyroid, unspecified Thyroglobulin Antibodies Today E07.9 - Disorder of thyroid, unspecified Thyroid Peroxidase Antibodies Today E07.9 - Disorder of thyroid, unspecified HCG Quantitative Today Z34.90 - Encounter for supervision of normal , unspecified, unspecified trimester Coding Level of Care Code Est Pt Level 5 (76941) Diagnoses Psoriatic arthritis L40.50 SHOAIB positive R76.8
[2024-05-21 09:13] VITALS: BP 115/70; PULSE 79; RESP 16; O2SAT 98; BMI 31.1
== END 2024-05-21 10:35 | disposition home or self-care (01) ==
PROVIDERS: PCP Internal Medicine; Visit Provider Student in an Organized Health Care Education/Training Program
DX: L40.50 Arthropathic psoriasis, unspecified (principal); R76.8 Other specified abnormal immunological findings in serum
CPT/HCPCS: 99214

== ENCOUNTER 2024-06-25 08:35 | Outpatient (AMB) | payer OTHER, SELFPAY ==
--- NOTE | 2024-06-25 08:42 | A.OFFVIS_ITS ---
Vital Signs 06/25/24 08:45 Height 5 ft 4 in Weight 181 lb 3.52 oz BMI 31.1 BP 116/70 Blood Pressure Location Rt brachial Position Sitting Respiration 16 Pulse 67 Pulse Source Pulse Oximeter Pulse Oximetry (%) 99 Oxygen Delivery Method Room Air Intake Visit Reasons: PsA Intake Note: Patient presents for PsA. Allergies No Known Allergies Allergy (Verified 06/25/24 08:45) Medication List - Last Reconciled 06/25/24 by Giovani Robledo MD albuterol 90 mcg/actuation 2 mcg inhalation DIRECTED PRN cetirizine (Zyrtec) 10 mg PO DAILY PRN meloxicam 7.5 mg PO BID PRN HPI Comments Details: 33-year-old female with newly diagnosed psoriatic arthritis returns for follow- up. She is 9 weeks now. She has not seen an OBGYN physician yet. She has an appointment in 3 weeks. Per patient her is going well so far. Since the beginning of May she has had 2 flare-ups of arthritis the last 1- 2 days at the most. She was advised not to use any of her creams for psoriasis and her psoriasis is flaring up significantly especially on her scalp her ears and on her right dickinson Initial history: This is a 33-year-old female who presents for evaluation of a positive SHOAIB. Patient has had psoriasis for more than 10 years. It generally in falls her scalp, her ears, her legs and elbows. She has been treated with different topical creams with varying efficacy. She states that over the last year she has been having episodes of joint pain and swelling involving her hands, wrists, toes. These episodes happen about once a day and last about 1 day. They are generally quite debilitating. Do not respond much to ibuprofen. For a few years she would have episodes of soft tissue swelling such as in her shoulders and back if she carries a backpack. She had an episode of swelling of her forehead after she was wearing a hat. She is unaware of any family history of an autoimmune rheumatic disease. Denies any history of DVT/PE. 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 Reproductive History Menstrual Total pregnancies: 1 Review of Systems Musc Reports arthralgias, Reports joint swelling and Reports stiffness Skin/Breast Reports rash Physical Exam Vital Signs: Last Vital Signs Pulse 67 06/25/24 08:45 Resp 16 06/25/24 08:45 BP 116/70 06/25/24 08:45 Pulse Ox 99 06/25/24 08:45 Oxygen Delivery Method Room Air 06/25/24 08:45 BMI result Body Mass Index 31.1 Const General: cooperative, healthy appearing, comfortable and no acute distress Nutritional Appearance: obese Orientation/consciousness: patient oriented x3 Limitations: no limitations HEENT Head: Yes normocephalic and Yes atraumatic Mouth: moist mucous membranes Resp Effort & Inspection: normal respiratory effort and able to speak in complete sentences Auscultation: clear to auscultation bilaterally Skin Other: Psoriasis rashes on both elbows, behind both ears, inside both ears, large patch on her right leg, subtle patches on left leg and left knee Neuro General: patient oriented x3 Extrem Other: There is no active synovitis today Negative straight leg raise test bilaterally Negative Fabere test bilaterally Subtle DIP changes particularly in the left index Normal nailfold capillaroscopy Assessment & Plan Assessment & Plan (1) Psoriatic arthritis: Code(s): L40.50 - Arthropathic psoriasis, unspecified Category: Medical Plan: This is a 33-year-old female with 10 year history of psoriasis who presents for evaluation of 1 year history of intermittent joint pain and swelling. Clinical picture consistent with new onset inflammatory arthritis. Comprehensive serology negative except for a positive SHOAIB. Her diagnosis consistent with psoriatic arthritis. Patient is 9 weeks now. At this time, her flare-ups are few and far in between, since the beginning of May she had a total of 2 flare-ups that lasted 1-2 days, ibuprofen did not help however. She usually just rests the affected joints. Advised patient that at this time she does not need a DMARD. Prescribed meloxicam 7.5 mg, can take 1-2 tabs a day as needed for flare-ups. Discussed with patient that NSAIDs can not be used after 28 weeks of . Continue to monitor her symptoms, if symptoms get worse, can consider starting a DMARDs such as Cimzia Her psoriasis is getting worse. She has been advised not to use any topicals as she is . She has not seen her instructional support specialist yet. Advised patient that she can use topical steroid creams and shampoos. Can discuss further with OBGYN Labs before next visit in 8 weeks (2) SHOAIB positive: Code(s): R76.8 - Other specified abnormal immunological findings in serum Category: Medical Plan: Further sub serologies are negative. Positive SHOAIB can be seen in psoriasis and psoriatic arthritis Plan I spent 35 minutes reviewing patient's chart, evaluating patient, ordering diagnostic workup, counseling patient and documenting in the chart Orders: Orders Complete Blood Count Auto Diff 8 Weeks L40.50 - Arthropathic psoriasis, unspecified Comprehensive Met. Panel 8 Weeks L40.50 - Arthropathic psoriasis, unspecified C Reactive Protein 8 Weeks L40.50 - Arthropathic psoriasis, unspecified Erythrocyte Sedimentation Rate 8 Weeks L40.50 - Arthropathic psoriasis, unspecified Medications: New meloxicam 7.5 mg PO BID PRN 30 tabs 0RF Joint pain Coding Level of Care Code Est Pt Level 4 (40140) Diagnoses Psoriatic arthritis L40.50 SHOAIB positive R76.8
[2024-06-25 08:45] VITALS: BP 116/70; PULSE 67; RESP 16; O2SAT 99; BMI 31.1
== END 2024-06-25 09:22 | disposition home or self-care (01) ==
PROVIDERS: PCP Internal Medicine; Visit Provider Student in an Organized Health Care Education/Training Program
DX: L40.50 Arthropathic psoriasis, unspecified (principal); R76.8 Other specified abnormal immunological findings in serum
CPT/HCPCS: 99214

== ENCOUNTER 2024-07-12 06:14 | Outpatient (REF) | payer OTHER, SELFPAY ==
[2024-07-12 06:41] LABS: MANUAL DIFF FLAG NO
[2024-07-12 07:04] LABS: Basophils Percent Auto 0.1 % (0-2); Eosinophils Absolute Auto 0.3 X10*3/uL (0.0-0.4); Eosinophils Percent Auto 3.5 % (0-4); Hematocrit 35.5 % (37.0-47.0); Imm Gran Abs Auto 0.04 X10*3/uL (0.00-0.03); Imm Gran Pct Auto 0.5 % (0.0-0.4); Lymphocytes Absolute Auto 1.9 X10*3/uL (1.2-4.9); Lymphocytes Percent Auto 23.2 % (20-40); Mean Corpuscular HGB Conc 33.8 g/dl (31.0-35.0); Mean Corpuscular Hemoglobin 29.9 pg (27.0-33.0); Mean Corpuscular Volume 88.5 fL (80.0-98.0); Mean Platelet Volume 9.4 fL (9.4-12.3); Monocytes Absolute Auto 0.4 X10*3/uL (0.1-1.2); Monocytes Percent Auto 5.2 % (2-11); Neutrophils Absolute Auto 5.6 x10*3/uL (2.0-8.3); Neutrophils Percent Auto 67.5 % (45-73); Platelet Count 210 X10*3/uL (160-400); Red Blood Count 4.01 X10*6/uL (4.20-5.50); Red Cell Distribution Width 11.9 % (11.0-16.0); White Blood Count 8.3 X10*3/uL (4.8-10.8)
[2024-07-12 07:11] LABS: Estimated Average Glucose 100 mg/dL; Hemoglobin A1C 101.4736 umol/L; Hemoglobin A1c % 5.1 % (<6.0); Total Hemoglobin (HGBA1C) 3155.2618 umol/L
[2024-07-12 07:55] LABS: Syphilis Screen Nonreactive (Nonreactive)
[2024-07-12 08:09] LABS: HIV AB/AG Nonreactive (Nonreactive); HIV Num 1 0.06 S/CO (0.00-0.99); Hepatitis B Surface Antigen Negative (Negative); ~HepC Num1 0.13 S/CO (0.00-0.79); ~Hepatitis C Antibody Nonreactive (Nonreactive)
[2024-07-15 17:18] LABS: Rubella IgG Antibody 8.98 Index
== END 2024-07-12 06:15 | disposition home or self-care (01) ==
LOC: HO.LAB 06:14
PROVIDERS: PCP Internal Medicine; Visit Provider Obstetrics & Gynecology
DX: Z34.90 Encounter for supervision of normal pregnancy, unspecified, unspecified trimester (principal); Z11.59 Encounter for screening for other viral diseases; Z01.83 Encounter for blood typing; Z13.1 Encounter for screening for diabetes mellitus
CPT/HCPCS: 36415; 83036; 85025; 86762; 86780; 86803; 86850; 86870; 86900; 86901; 87086; 87340; 87389

== ENCOUNTER 2025-02-13 11:59 | Outpatient (AMB) | payer OTHER, SELFPAY ==
[2025-02-13 12:07] VITALS: BP 131/83; PULSE 79; RESP 16; O2SAT 100
--- NOTE | 2025-02-13 12:07 | A.OFFVIS_ITS ---
Vital Signs 02/13/25 12:07 02/13/25 13:16 Height 5 ft 4 in 5 ft 4 in BP 131/83 135/83 Blood Pressure Location Lt brachial Lt brachial Position Sitting Supine Respiration 16 16 Pulse 79 77 Pulse Source Pulse Oximeter Pulse Oximeter Pulse Oximetry (%) 100 100 Oxygen Delivery Method Room Air Room Air Intake Visit Reasons: Epidural Blood Patch: Per Dr. Barrios Allergies No Known Allergies Allergy (Verified 02/13/25 12:08) Medication List - Last Reconciled 02/13/25 by Aliya Swann LPN albuterol 90 mcg/actuation 2 mcg inhalation DIRECTED PRN cetirizine (Zyrtec) 10 mg PO DAILY PRN meloxicam 7.5 mg PO BID PRN HPI HPI Epidural Blood Patch: Per Dr. Barrios: Details: 34-year-old female presenting with worsening headache 5 days post labor epidural placement. Patient states that she had an epidural placement which was complicated by multiple attempts, unilateral coverage and development of a positional headache 1 day following the placement. She has been taking Fioricet and hydration without much relief. Pain extends from her spine area up towards the neck and into her frontotemporal region. She is interested in proceeding with a blood patch. She denies any recent blood thinner use. - Appears afebrile. - Alert and oriented. - Mood and affect appropriate. - Follows and participates in conversation appropriately. - Respiratory effort is unlabored. - Increased headache discomfort with upright position. 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 The patient was placed in the prone position. The lumbosacral area was widely prepped with ChloraPrep, allowed to dry and draped in sterile fashion. Fluoroscopic guidance was used to identify the desired interlaminar space and for needle placement. Subcutaneous 0.5% lidocaine was used to anesthetize the skin overlying the target. A 20-gauge Ledezma needle was advanced to the epidural space using loss of resistance to saline technique under AP and contralateral oblique views under fluoroscopy. There was no evidence of heme or CSF and no paresthesias were elicited with needle placement. Confirmation of epidural needle placement was performed with 1cc of omnipaque 180. Blood was now sterilely withdrawn from an IV that was sterilely placed. Next 35 cc of blood was administered epidurally with no pain elicited on injection. Injection was stopped when the patient reported a mild aching her lower back. The needle was removed, skin cleansed and a sterile bandage was applied. The patient tolerated the procedure well and no complications were encountered. Following the procedure the patient's vital signs were stable. The patient remained flat for 45 minutes in the recovery room. The patient was discharged home in good condition with post-procedural instructions. Time Out: Immediately prior to the procedure, the following was verbally conf irmed that there is a signed consent form and that the correct patient, planned procedure, site and side are consistent with documentation and that necessary equipment and/or blood products are available prior to the start of the case. Complications: none EBL: <5 cc 06098 - Epidural Blood Patch Procedure code (CPT) selection complete Assessment & Plan Assessment & Plan (1) Spinal headache: Code(s): G97.1 - Other reaction to spinal and lumbar puncture Category: Medical Plan Patient is status post interlaminar epidural blood patch with 35 mL blood. Patient tolerated procedure well and was discharged home in stable condition with discharge instructions. All questions were answered. We will follow-up via telephone or in clinic to assess response to therapy. A follow-up appointment was made during today's visit. Orders: Orders FL guidance in treatment room 02/13/25 G97.1 - Other reaction to spinal and lumbar puncture Coding Level of Care Code New Pt Level 3 (16885) Diagnoses Spinal headache G97.1 CPT Codes Epidural Blood Patch - EBPATCH: 11319 - Epidural Blood Patch ([id number])
--- OUTSIDE RECORDS SUMMARY | 2025-02-13 13:04 | XMS_ITS | Patient Health Record ---
Author Organization [facility] Address [address] [place] [address] Care Team Providers Care Extrusion Operator Name Role Phone Lis EMERSON, Steve Primary Care Provide r Unavailable Domingo Lorenz Jr Unavailable [phone] Allergies No Known Allergies Reason For Referral No Information Medications Medication SIG (Take, Route, Frequency, Duration) Notes Start Date End Date Status Pantoprazole Sodium 20 MG 1 tablet Orall y Once a day for 30 day(s) Active Paxil 10 MG 1 tablet in the morn ing Orally Once a day for 30 day(s) Active Immunizations Vaccine Route Administration Date Status Comme nts Influenza Unknown 05/05/2021 Administered Social History Tobacco Use: Social History Observation Description Date Details (start date - stop date) Never Smoker NA - NA Tobacco Use/Smoking Question Answer Notes Patient is a nonsmoker Alcohol Screen Question Answer Notes Did you have a drink contain ing alcohol in the past year? Yes How often did you have a dri nk containing alcohol in the past year? Monthly or less (1 point) How many drinks did you have on a typical day when you were drinking in the past year? 1 or 2 drinks (0 point) How often did you have 6 or more drinks on one occasion in the past year? Never (0 point) Points 1 Interpretation Negative Problems Problem Type SNOMED Code ICD Code Onset Dates Problem Status W/U Status Risk Notes Problem Gastric polyp (12117798) Gastric polyp (K31.7) Active confirmed Problem 139716267 Gastroesophageal reflux disease with esophagitis, unspecified whether hemorrhage (K21.00) Active confirmed Plan Of Treatment Future Test Test Name Order Date UPPER GI ENDOSCOPY 07/29/2021 Insurance Providers Payer Name Payer Address Payer Phone Subscriber Number Group Number Insured Name Patient Relationship to Insured Coverage Start Date Coverage End Date [id number] [address] [address] [place] [address] [id number] [id number] Self - patient is the insured Medical (General) History Medical History History ICD Code Gastroesophageal reflux disease Surgical History Surgery Date(Month/Year) appendectomy 1996
[2025-02-13 13:16] VITALS: BP 135/83; PULSE 77; RESP 16; O2SAT 100
== END 2025-02-13 13:21 | disposition home or self-care (01) ==
LOC: HO.PMCPRC 11:59
PROVIDERS: PCP Internal Medicine; Visit Provider Internal Medicine
DX: G97.1 Other reaction to spinal and lumbar puncture (principal)
CPT/HCPCS: 62273; 77003; 99203

== ENCOUNTER → 2025-02-13 11:59 | Outpatient (BNVA) | payer OTHER, SELFPAY | PROVIDERS: PCP Internal Medicine; Visit Provider Internal Medicine | DX: G97.1 Other reaction to spinal and lumbar puncture (principal) | CPT/HCPCS: 62273; 77003; J2003; Q9967 ==

== ENCOUNTER 2025-02-13 13:28 | Outpatient (REF) | payer OTHER, SELFPAY ==
--- NOTE | ~2025-02-13 | FL_ITS ---
EXAMINATION: FL GUIDANCE ONLY HISTORY: G97.1 - Other reaction to spinal and lumbar puncture COMPARISON: None available. TECHNIQUE: Fluoroscopy time: 0.2 minutes. Cumulative Dose: 3.48 mGy. DAP: 0.0238 mGym2 Images: 4. FINDINGS: Fluoroscopic spot films of the lumbar spine demonstrate a needle in place. FL/FL guidance in treatment room IMPRESSION: Fluoroscopy during procedure. Please see procedure report for additional information. Electronically signed by: Dre Gardner MD 02/13/2025 02:59 PM EDT
== END 2025-02-13 13:29 | disposition home or self-care (01) ==
LOC: CF 13:28
PROVIDERS: Visit Provider Internal Medicine
DX: Z13.89 Encounter for screening for other disorder (principal)

== ENCOUNTER 2025-03-06 14:03 | Outpatient (REF) | payer OTHER, SELFPAY ==
[2025-03-06 17:31] LABS: MANUAL DIFF FLAG NO
[2025-03-06 17:59] LABS: Hematocrit 37.1 % (37.0-47.0); Hemoglobin 12.0 g/dl (12.0-16.0); Imm Gran Abs Auto 0.02 X10*3/uL (0.00-0.03); Imm Gran Pct Auto 0.4 % (0.0-0.4); Lymphocytes Absolute Auto 2.0 X10*3/uL (1.2-4.9); Mean Corpuscular HGB Conc 32.3 g/dl (31.0-35.0); Mean Corpuscular Hemoglobin 29.9 pg (27.0-33.0); Mean Corpuscular Volume 92.5 fL (80.0-98.0); NRBC Abs Auto 0.000 X10*3/uL (0.0-0.012); NRBC Pct Auto 0.0 /100WBC (0.0-0.2); Platelet Count 230 X10*3/uL (160-400); Red Blood Count 4.01 X10*6/uL (4.20-5.50); White Blood Count 5.3 X10*3/uL (4.8-10.8)
[2025-03-06 18:24] LABS: Alanine Aminotransferase 33 U/L (0-31); Albumin Level 4.4 g/dL (3.5-5.0); Alkaline Phosphatase 84 U/L (39-117); Anion Gap 12 (12-20); Aspartate Amino Transferase 30 U/L (5-31); Blood Urea Nitrogen 13 mg/dL (9-16); Calcium 9.0 mg/dL (8.4-10.2); Carbon Dioxide 27 mmol/L (22-29); Chloride 109 mmol/L (96-108); Estimated Glomerular Filt Rate > 60; Potassium 4.5 mmol/L (3.3-5.1); Sodium 143 mmol/L (135-145); Total Protein 7.0 g/dL (6.5-8.0)
[2025-03-07 08:54] LABS: HBS Num1 17.70 mIU/mL (0-7.99); HBc Num1 0.09 S/CO (0.00-0.79); HBsAGNum1 0.33 S/CO (0.00-0.99); Hepatitis B Surface Antigen Negative (Negative); ~HepC Num1 0.15 S/CO (0.00-0.79); ~Hepatitis B Surface Antibody REACTIVE (Nonreactive); ~Hepatitis C Antibody Nonreactive (Nonreactive)
[2025-03-11 03:08] LABS: TS Negative Control Passed; TS Panel A 0; TS Panel B 0; TS Positive Control Passed; TSpotTB Negative (Negative)
== END 2025-03-06 14:04 | disposition home or self-care (01) ==
LOC: HO.HKASLDS 14:03
PROVIDERS: PCP Internal Medicine; Visit Provider Student in an Organized Health Care Education/Training Program
DX: O99.73 Diseases of the skin and subcutaneous tissue complicating the puerperium (principal); L40.50 Arthropathic psoriasis, unspecified; Z79.899 Other long term (current) drug therapy
CPT/HCPCS: 36415; 80053; 85025; 85652; 86140; 86481; 86704; 86706; 86803; 87340

== ENCOUNTER 2025-03-06 14:03 | Outpatient (AMB) | payer OTHER, SELFPAY ==
--- NOTE | 2025-03-06 14:10 | MHC.OFFVIS ---
Vital Signs 03/06/25 14:15 Height 5 ft 4 in Weight 201 lb 15.095 oz BMI 34.7 BP 115/72 Blood Pressure Location Lt brachial Position Sitting Pulse 82 Pulse Source Pulse Oximeter Pulse Oximetry (%) 97 Oxygen Delivery Method Room Air Intake Visit Reasons: PsA Intake Note: Patient presents for PsA follow up. Allergies No Known Allergies Allergy (Verified 03/06/25 14:13) Medication List - Last Reconciled 03/06/25 by Leanna Dockery MD albuterol 90 mcg/actuation 2 mcg inhalation DIRECTED PRN cetirizine (Zyrtec) 10 mg PO DAILY PRN HPI Comments Details: Patient is a 34-year-old female with depression, asthma, GERD, psoriasis complicated by psoriatic arthritis here today for follow up Interval History: Patient last seen 06/25/[address] Robledo - Not on any DMARD - She is 9 weeks now. She has not seen an OBGYN physician yet. She has an appointment in 3 weeks. Per patient her is going well so far. Since the beginning of May she has had 2 flare-ups of arthritis the last 1-2 days at the most. 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 Patient has had psoriasis for more than 10 years. It generally in falls her scalp, her ears, her legs and elbows. She has been treated with different topical creams with varying efficacy. She states that over the last year she has been having episodes of joint pain and swelling involving her hands, wrists, toes. These episodes happen about once a day and last about 1 day. They are generally quite debilitating. Do not respond much to ibuprofen. For a few years she would have episodes of soft tissue swelling such as in her shoulders and back if she carries a backpack. She had an episode of swelling of her forehead after she was wearing a hat. She is unaware of any family history of an autoimmune rheumatic disease. Denies any history of DVT/PE. She just found out she was on a urine test Current Rheumatology Medication(s): [facility] Medical History SHOAIB positive Depression Asthma Urticaria Exercise-induced asthma Psoriasis GERD (gastroesophageal reflux disease) Surgical History History of appendectomy Social History Household Members: Significant Other Housing: House Alcohol intake: current Alcohol type: beer Patient Tobacco Use Status: Never used Tobacco e-Cigarette/Vaping Use: Never Used service: No Current occupational status: employed Current occupation: RN [employer] Review of Systems Const Details: Review of Systems Constitutional: Denies fever, chills, weight loss ENT: Denies vision changes, eye pain or eye redness, dental caries, dry mouth GI: Denies nausea, vomiting, diarrhea, abdominal pain, change in BM Pulm: Denies SOB, RAMIRES, hemoptysis, wheezing Cards: Denies chest pain, palpitations Skin: Denies Raynaud's, rash, nail changes, photosensitivity, HIDE AND SKIN CLASSER: Denies headaches, weakness, paresthesias, recurrent falls MSK: as per HPI All other systems reviewed and are unremarkable except noted above Physical Exam Exam Exam: Vital signs reviewed Physical Examination CONSTITUITIONAL Patient alert and cooperative. Well appearing and in no apparent painful distress MSK Hands Right Hand: Able to make a fist. No swelling or tenderness to palpation of the MCPs, PIPs or DIPs. No deformities noted. Left Hand: Able to make a fist. No swelling or tenderness to palpation of the MCPs, PIPs or DIPs. No deformities noted. Wrists Right Wrist: Full ROM to flexion and extension. No swelling or TTP Left Wrist: Full ROM to flexion and extension. No swelling or TTP Elbows Right Elbow: Full ROM. No swelling or TTP. No TTP of the medial epicondyle. No TTP of the lateral epicondyle Left Elbow: Full ROM. No swelling or TTP. No TTP of the medial epicondyle. No TTP of the lateral epicondyle Shoulders Right shoulder: Full ROM. No swelling noted. No TTP of the AC joint. No TTP of the subacromial bursa. No TTP of the posterior shoulder Left shoulder: Full ROM. No swelling noted. No TTP of the AC joint. No TTP of the subacromial bursa. No TTP of the posterior shoulder Knees Right knee: Full ROM. No swelling noted. No TTP of the knee joint line. No TTP of pes anserine bursa Left knee: Full ROM. No swelling noted. No TTP of the knee joint line. No TTP of pes anserine bursa. Ankles Right ankle: Good ankle dorsiflexion and plantar flexion. No swelling. No TTP of the ankle joint Left ankle: Good ankle dorsiflexion and plantar flexion. No swelling. No TTP of the ankle joint Feet Right foot: Negative squeeze test Left foot: Negative squeeze test Tender points? No tenderness to palpation of the bilateral trapezius, supraspinatus, anterior costochondral junctions, bilateral suboccipital muscle insertions SKIN Mild PsO over the extensor surface of the right elbow Vital Signs: Last Vital Signs Pulse 82 03/06/25 14:15 BP 115/72 03/06/25 14:15 Pulse Ox 97 03/06/25 14:15 Oxygen Delivery Method Room Air 03/06/25 14:15 BMI result Body Mass Index 34.7 Results Reviewed Results Reviewed: Laboratory Tests 05/21/24 07/12/24 10:39 06:39 WBC 8.3 RBC 4.01 L Hgb 12.0 Hct 35.5 L Plt Count 210 ESR 10 Sodium 138 Potassium 3.8 Chloride 106 Carbon Dioxide 24 Anion Gap 12 BUN 12 Creatinine 0.81 AST 26 ALT 27 Alkaline Phosphatase 74 C-Reactive Protein 0.25 Laboratory Tests 09/14/21 09/22/21 05/21/24 11:50 06:23 10:39 SHOAIB Screen POSITIVE A SHOAIB Titer 1:320 H SHOAIB Pattern Nuclear, Homogeneous A Proteinase 3 (PR3) Ab <1.0 Myeloperoxidase Ab <1.0 SS-A/Ro Antibody <1.0 NEG SS-B/La Antibody <1.0 NEG Sm ([place]) Antibody <1.0 NEG SM/PRENATAL NURSE IgG Antibody <1.0 NEG Double Strand DNA Ab 1 Beta-2-GPI IgG Ab <2.0 Beta-2-GPI IgA Ab <2.0 Beta-2-GPI IgM Ab <2.0 Thyroglobulin Antibody <1 Thyroid Peroxidase Ab 2 Anti-Cardiolipin IgG Ab <2.0 Anti-Cardiolipin IgM Ab <2.0 Complement C3 149 Complement C4 25 Assessment & Plan Assessment & Plan (1) Psoriatic arthritis: Code(s): L40.50 - Arthropathic psoriasis, unspecified Category: Medical Plan: #PsA Patient is a 34-year-old female here today for follow up of psoriatic arthritis She is currently 4 weeks and experiences intermittent days of joint symptoms Psoriasis is completely under control at this time Patient is currently and would like to continue Would like to hold off on DMARDs for now since the sx are not constant Father in law spoke about doing Glucosamine for her joints I said that the studies with glucosamine are usually in respect to OA but it is safe in and she can try it Plan - Ibuprofen 600mg 2 - 3 times per day - Glucosamine and Chondroitin bid - If sx get constant we will consider starting DMARDs - Labs today: CBC, CMP, ESR, CRP, Hepatitis panel and T spot - RTC 4-6 months Plan I spent 30 minutes reviewing the record and labs, taking a history, examining the patient, discussing the treatment plan, ordering diagnostic work up and documenting in the medical record Orders: Orders Comprehensive Met. Panel Today Z79.899 - Other group home (current) drug therapy C Reactive Protein Today Z79.899 - Other group home (current) drug therapy Hepatitis B,C Profile Today Z79.899 - Other group home (current) drug therapy Complete Blood Count Auto Diff Today Z79.899 - Other group home (current) drug therapy Erythrocyte Sedimentation Rate Today Z79.899 - Other termination clerk (current) drug therapy T Spot TB Today Z79.899 - Other group home (current) drug therapy Medications: New ibuprofen 600 mg PO TID 90 tabs 4RF L40.50 - Arthropathic psoriasis, unspecified Coding Level of Care Code Est Pt Level 4 (20984) Complex EM visit Add On G2211 Diagnoses Psoriatic arthritis L40.50
[2025-03-06 14:15] VITALS: BP 115/72; PULSE 82; O2SAT 97; BMI 34.7
== END 2025-03-06 14:45 | disposition home or self-care (01) ==
LOC: HO.RHES 14:04
PROVIDERS: PCP Internal Medicine; Visit Provider Student in an Organized Health Care Education/Training Program
DX: L40.50 Arthropathic psoriasis, unspecified (principal)
CPT/HCPCS: 99214